=== PATIENT | female | born 1990 | race Caucasian/White ===

== ENCOUNTER 2018-05-03 21:25 | Emergency (ER) | payer BC, OTHER ==
[~2018-05-03] VITALS: Ht 162.6 cm; Wt 79.4 kg
[2018-05-03 22:01] LABS: BILIRUBIN,URINE NEGATIVE (NEGATIVE); CLARITY,URINE CLEAR; COLOR,URINE YELLOW; GLUCOSE, URINE (UA) NEGATIVE (NEGATIVE); KETONES,URINE NEGATIVE (NEGATIVE); LEUKOCYTE ESTERASE ,URINE 1+ (NEGATIVE); NITRITE,URINE NEGATIVE (NEGATIVE); PH,URINE 5 (5-9); PROTEIN,URINE NEGATIVE (NEGATIVE); UROBILINOGEN,URINE NORMAL (NORMAL)
[2018-05-03 22:03] LABS: BASOPHILS % (AUTO) 0 % (0-10); EOSINOPHILS # (AUTO) 0.3 10^3/uL (0.0-0.3); EOSINOPHILS % (AUTO) 2 % (0-10); HEMATOCRIT 36 % (35-52); HEMOGLOBIN 12.9 G/DL (11.5-16.0); LYMPHOCYTES # (AUTO) 2.1 X 10^3 (1.0-4.0); LYMPHOCYTES % (AUTO) 14 % (12-44); MEAN CORPUSCULAR HEMOGLOBIN 32 PG (25-34); MEAN CORPUSCULAR HGB CONC 36 G/DL (32-36); MEAN CORPUSCULAR VOLUME 88 FL (80-99); MEAN PLATELET VOLUME 10.2 FL (7.4-10.4); MONOCYTES % (AUTO) 7 % (0-12); NEUTROPHILS # (AUTO) 11.5 X 10^3 (1.8-7.8); NEUTROPHILS % (AUTO) 77 % (42-75); PLATELET COUNT 167 10^3/uL (130-400); RED BLOOD COUNT 4.07 10^6/uL (4.35-5.85); RED CELL DISTRIBUTION WIDTH 12.2 % (10.0-14.5); WHITE BLOOD COUNT 14.9 10^3/uL (4.3-11.0)
[2018-05-03 22:07] LABS: BACTERIA,URINE TRACE /HPF; RBC,URINE 50-100 /HPF; WBC,URINE RARE /HPF
[2018-05-03 22:20] LABS: BAND NEUTROPHILS 6 %; EOSINOPHILS % (MANUAL) 1 %; LYMPHOCYTES % (MANUAL) 10 %; MONOCYTES % (MANUAL) 5 %; NEUTROPHILS % (MANUAL) 78 %; RBC MORPH NORMAL
--- NOTE | 2018-05-03 23:31 | ED GU-Female ---
General Chief Complaint: -Female Stated Complaint: PASSING LARGE CLOTS/PAIN Nursing Triage Note: states that she is 8 weeks gravid. She knows she has a subcorionic bleed- was seen in ed 2 [address] Yo Rush for labs. at 2014- passed 2 clots approx pingpongball and golfball sized with bright red blood. states she was cramping last night. very tearful Nursing Sepsis Screen: No Definite Risk Source: patient Exam Limitations: no limitations History of Present Illness Date Seen by Provider: May 03, 2018 Time Seen by Provider: 21:54 Initial Comments This 27-year-old young lady presents to the ER at about 8 weeks gestational age with vaginal bleeding. She has been bleeding for about 2 weeks and reports that a prior ultrasound noted a subchorionic hemorrhage. Today she has been bleeding heavier than she has over the past 2 weeks and she is now passing clots. She reports cramping that is perhaps a little worse than it has been over the last 2 weeks. She had presented to the emergency room in the [place], [place] previously. She denies any fevers. She has an appointment with Dr. Lund on May 05. Allergies and Home Medications Allergies Coded Allergies: No Known Drug Allergies (Unverified , 05/03/18) Patient Home Medication List Home Medication List Reviewed: Yes Review of Systems Review of Systems Constitutional: no symptoms reported EENTM: no symptoms reported Respiratory: no symptoms reported Cardiovascular: no symptoms reported Gastrointestinal: no symptoms reported Genitourinary: see HPI : Yes Musculoskeletal: no symptoms reported Skin: no symptoms reported Psychiatric/Neurological: No Symptoms Reported Endocrine: No Symptoms Reported Hematologic/Lymphatic: No Symptoms Reported Past Nnyrqew-Uteqfu-Lcslun Hx Patient Social History Alcohol Use: Denies Use Recreational Drug Use: No Smoking Status: Never a Smoker 2nd Hand Smoke Exposure: No Recent Foreign Travel: No Contact w/Someone Who Travel: No Recent Infectious Disease Expo: No Recent Hopitalizations: No Physical Abuse: No Sexual Abuse: No Mistreated: No Fear: No Immunizations Up To Date PED Vaccines UTD: Yes Seasonal Allergies Seasonal Allergies: No Past Medical History Surgeries: Yes Adenoidectomy, Ear Surgery, Tonsillectomy Respiratory: No Cardiac: No Neurological: No : Yes Hx : 1 Hx Para: 1 Genitourinary: No Gastrointestinal: No Musculoskeletal: No Endocrine: No HEENT: No Cancer: No Psychosocial: No Integumentary: No Blood Disorders: No Physical Exam Vital Signs Vital Signs - First Documented 05/03/18 05/03/18 21:30 23:45 Temp 98.9 Pulse 68 Resp 16 B/P (MAP) 138/69 (92) Pulse Ox 99 O2 Delivery Room Air Capillary Refill : Less Than 3 Seconds Height, Weight, BMI Height: 5'4.00" Weight: 175lbs. oz. 79.927636vc; BMI Method:Stated General Appearance: WD/WN, no apparent distress HEENT: normal ENT inspection, pharynx normal Neck: normal inspection Cardiovascular: regular rate, rhythm, no edema, no murmur Respiratory: lungs clear, normal breath sounds, no respiratory distress, no accessory muscle use Gastrointestinal: soft, tenderness (mild over the suprapubic region) Extremities: normal inspection, no pedal edema Neurologic/Psychiatric: advertising operations coordinator II-XII nml as tested, no motor/sensory deficits, alert, normal mood/affect, oriented x 3 Skin: normal color, warm/dry Progress/Results/Core Measures Suspected Sepsis Recent Fever Within 48 Hours: No Infection Criteria Present: None New/Unexplained Altered Menta: No Sepsis Screen: No Definite Risk SIRS Temperature:98.9 Pulse: 68 Respiratory Rate: 16 Laboratory Tests 05/03/18 21:40: White Blood Count 14.9H Blood Pressure 138 /69 Mean: 92 Laboratory Tests 05/03/18 21:40: Platelet Count 167 Results/Orders Lab Results Laboratory Tests Test 05/03/18 21:35 05/03/18 21:40 Range/Units Urine Color YELLOW Urine Clarity CLEAR Urine pH 5 5-9 Urine Specific Cascade 1.010 L 1.016-1.022 Urine Protein NEGATIVE NEGATIVE Urine Glucose (UA) NEGATIVE NEGATIVE Urine Ketones NEGATIVE NEGATIVE Urine Nitrite NEGATIVE NEGATIVE Urine Bilirubin NEGATIVE NEGATIVE Urine Urobilinogen NORMAL NORMAL MG/DL Urine Leukocyte Esterase 1+ H NEGATIVE Urine RBC (Auto) 5+ H NEGATIVE Urine RBC 50-100 H /HPF Urine WBC RARE /HPF Urine Squamous Epithelial Cells 2-5 /HPF Urine Crystals NONE /LPF Urine Bacteria TRACE /HPF Urine Casts NONE /LPF Urine Mucus NEGATIVE /LPF Urine Culture Indicated NO White Blood Count 14.9 H 4.3-11.0 10^3/uL Red Blood Count 4.07 L 4.35-5.85 10^6/uL Hemoglobin 12.9 11.5-16.0 G/DL Hematocrit 36 35-52 % Mean Corpuscular Volume 88 80-99 FL Mean Corpuscular Hemoglobin 32 25-34 PG Mean Corpuscular Hemoglobin Concent 36 32-36 G/DL Red Cell Distribution Width 12.2 10.0-14.5 % Platelet Count 167 130-400 10^3/uL Mean Platelet Volume 10.2 7.4-10.4 FL Neutrophils (%) (Auto) 77 H 42-75 % Lymphocytes (%) (Auto) 14 12-44 % Monocytes (%) (Auto) 7 0-12 % Eosinophils (%) (Auto) 2 0-10 % Basophils (%) (Auto) 0 0-10 % Neutrophils # (Auto) 11.5 H 1.8-7.8 X 10^3 Lymphocytes # (Auto) 2.1 1.0-4.0 X 10^3 Monocytes # (Auto) 1.0 0.0-1.0 X 10^3 Eosinophils # (Auto) 0.3 0.0-0.3 10^3/uL Basophils # (Auto) 0.0 0.0-0.1 10^3/uL Neutrophils % (Manual) 78 % Lymphocytes % (Manual) 10 % Monocytes % (Manual) 5 % Eosinophils % (Manual) 1 % Band Neutrophils 6 % Blood Morphology Comment NORMAL Human Chorionic Gonadotropin, Quant 23531 H <5 MIU/ML My Orders Orders - ALEX BRO MD Cbc With Automated Diff (05/03/18 21:54) Ua Culture If Indicated (05/03/18 21:54) Abo Rh Type (05/03/18 21:54) Manual Differential (05/03/18 21:40) Hcg,Quantitative (05/03/18 22:37) Vital Signs/I&O 05/03/18 05/03/18 21:30 23:45 Temp 98.9 98.5 Pulse 68 86 Resp 16 14 B/P (MAP) 138/69 (92) 125/73 (90) Pulse Ox 99 99 O2 Delivery Room Air Capillary Refill : Less Than 3 Seconds Blood Pressure Mean: 92 Progress Note : Progress Note Labs were reviewed. Ultrasound was not immediately available. Bleeding seemed to improve some during her ER stay. Close follow-up with Dr. Lund was recommended. Patient had already received a RhoGAM injection on her prior encounter 2 weeks ago. The hCG Quant was reassuring. Departure Impression Primary Impression: Vaginal bleeding during Disposition: HOME, SELF-CARE Condition: Stable Departure-Patient Inst. Decision time for Depature: 23:31 Referrals: ISAAC LUND DO (PCP/Family) Primary Care Physician Patient Instructions: Threatened Miscarriage Add. Discharge Instructions: Return to the emergency room if you have worsening symptoms including escalating pain, vaginal hemorrhage, or secondary signs of anemia such as shortness of breath, lightheadedness, or weakness. Contact Dr. Lund's office in the morning for further instructions. Continue to observe strict vaginal rest meaning nothing vaginally including intercourse until cleared by Dr. Lund. All discharge instructions reviewed with patient and/or family. Voiced understanding. Copy Copies To 1: ISAAC LUND JOSHUA T MD May 03, 2018 23:31
[2018-05-03 23:45] VITALS: BP 125/73
== END 2018-05-03 23:45 | disposition home or self-care (01) ==
LOC: ER 21:27
DX: O20.9 Hemorrhage in early pregnancy, unspecified (principal); Z3A.08 8 weeks gestation of pregnancy; Z90.89 Acquired absence of other organs
CPT/HCPCS: 36415; 81000; 84702; 85007; 85025; 85027; 86900; 86901; 99282

== ENCOUNTER 2018-05-06 11:02 | Day surgery (SDC) | payer BC ==
[~2018-05-06] VITALS: Ht 162.6 cm; Wt 79.4 kg
[2018-05-06 11:15] VITALS: BP 125/72
[2018-05-06] MEDS ORDERED: LACTATED RINGERS 1,000 ML IV PRN (11:32)
[2018-05-06] MEDS ORDERED: MIDAZOLAM 2 MG/2 ML (VERSED) VIAL IV ONE (11:45)
[2018-05-06] MEDS ORDERED: LIDOCAINE PF 2% 5 ML (XYLOCAINE) VIAL ONE (11:58)
[2018-05-06] MEDS ORDERED: DEXAMETHASONE 10 MG/ML (DECADRON) 1 ML VIAL ONE (11:58)
[2018-05-06] MEDS ORDERED: proPOfol 200 MG/20 ML (DIPRIVAN) VIAL IV ONE (11:58)
[2018-05-06] MEDS ORDERED: ONDANSETRON 4 MG/2 ML (SDV) Z0FRAN ONE (11:58)
[2018-05-06] MEDS ORDERED: SEVOFLURANE (ULTANE) 15 ML INHAL SOLN ONE (11:58)
[2018-05-06] MEDS ORDERED: fentaNYL INJECTION 100 MCG/2 ML AMP ONE (11:59)
[2018-05-06] MEDS ORDERED: MIDAZOLAM 2 MG/2 ML (VERSED) VIAL ONE (11:59)
[2018-05-06] MEDS ORDERED: metroNIDAZOLE 500MG/100ML IVPB 100 ML IV ONE (12:00)
[2018-05-06] MEDS ORDERED: ceFAZolin INJECTION 1,000 MG in NS (IVPB) 50 ML IV ONE (12:00)
[2018-05-06] MEDS ORDERED: metroNIDAZOLE 500MG/100ML IVPB 100 ML ONE (12:19)
[2018-05-06] MEDS ORDERED: ceFAZolin 1,000 MG/10 ML (ANCEF) VIAL ONE (12:19)
[2018-05-06] MEDS ORDERED: NS (IVPB) 50 ML ONE (12:19)
--- NOTE | 2018-05-06 12:59 | Progress Note-Pre Operative ---
Pre-Operative Progress Note H&P Reviewed The H&P was reviewed, patient examined and no changes noted. Date Seen by Provider: May 06, 2018 Time Seen by Provider: 12:50 Date H&P Reviewed: May 06, 2018 Time H&P Reviewed: 12:30 Pre-Operative Diagnosis: MISSED ISAAC SMART DO May 06, 2018 12:59
[2018-05-06] MEDS ORDERED: KETOROLAC 30 MG/ML VIAL ONE (13:28)
[2018-05-06] MEDS ORDERED: D5 LR IV SOLUTION 1,000 ML IV SCH (13:32)
--- NOTE | 2018-05-06 13:43 | Operative Report ---
Operative Report Date of Procedure/Surgery May 06, 2018 Surgeon (s) ISAAC LUND DO Paper Roll Machine Operator (s): Alek Benites, MS III Post-Operative Diagnosis missed ab Procedure Performed suction dilation and curettage Description of Procedure Anesthesia Type: General Estimated blood loss (mL): 25 Specimen(s) collected/removed products of conception Findings of the Procedure moderate amounts of products of conception Allergies and Home Medications Allergies Coded Allergies: No Known Drug Allergies (Unverified , 05/03/18) ISAAC LUND DO May 06, 2018 13:43
[2018-05-06] MEDS ORDERED: KETOROLAC 30 MG/ML VIAL IVP PRN (13:45)
[2018-05-06] MEDS ORDERED: ONDANSETRON 4 MG/2 ML (SDV) Z0FRAN IVP PRN ×2 (13:45)
[2018-05-06] MEDS ORDERED: ACHD5005 PO (13:45)
[2018-05-06] MEDS ORDERED: HYDROcodone/APAP 5 MG/325 MG (LORTAB) TAB PO PRN (13:45)
[2018-05-06] MEDS ORDERED: MEPERIDINE (DEMEROL) INJ 50 MG/ML IVP ONE (13:45)
[2018-05-06] MEDS ORDERED: KETOROLAC 30 MG/ML VIAL IVP ONE (13:45)
[2018-05-06] MEDS ORDERED: IBUP-1773 PO (13:45)
[2018-05-06] MEDS ORDERED: HYDROmorphone 2 MG/ML VIAL (DILAUDID) IV ONE (13:45)
[2018-05-06] MEDS ORDERED: HYDROmorphone 2 MG/ML VIAL (DILAUDID) ONE (13:46)
--- NOTE | 2018-05-06 13:46 | Discharge Inst-Women's Service ---
Discharge Inst-Women's Serv Depart Medication/Instructions New, Converted or Re-Newed RX: RX on Chart Final Diagnosis incomplete /miscarriage Consults/Follow Up Additional Follow Up: Yes ([address] Ram) Activity Activity: Activity as Tolerated Driving Instructions: No Driving for 24 Hours NO SMOKING: NO SMOKING Nothing Inside Vagina: No Douching, No Dotsero, No Tampons Diet Discharge Diet: No Restrictions Symptoms to Report to : Swelling Increased, Bleeding Excessive, Pain Increased, Fever Over 101 Degrees F, Vaginal Bleeding Increase, Cramps in Feet or Legs, Vaginal Discharge Foul For Any Problems or Questions: Contact Your Physician Skin/Wound Care Bathing Instructions: ISAAC Newton DO May 06, 2018 13:46
[2018-05-06 14:35] VITALS: BP 106/67
--- NOTE | 2018-05-06 14:42 | Anesthesia-General Post-Op ---
General Patient Condition Mental Status/LOC: Same as Preop Cardiovascular: Satisfactory Nausea/Vomiting: Absent Respiratory: Satisfactory Pain: Controlled Complications: Absent Post Op Complications Complications None Follow Up Care/Instructions Patient Instructions None needed. Anesthesia/Patient Condition Patient Condition Patient is doing well, no complaints, stable vital signs, no apparent adverse anesthesia problems. No complications reported per nursing. AL GAITAN CRNA May 06, 2018 14:42
[2018-05-06 15:05] VITALS: BP 102/57
[2018-05-06] MEDS ORDERED: HYDROcodone/APAP 5 MG/325 MG (LORTAB) TAB ONE ×2 (15:20→15:23)
[2018-05-06 15:35] VITALS: BP 100/63
[2018-05-06 16:45] VITALS: BP 106/63
[2018-05-06 16:47] VITALS: BP 106/63
[2018-05-06] MEDS ORDERED: IBUPROFEN 600 MG (MOTRIN) TAB PO SCH (18:00)
== END 2018-05-06 16:45 | disposition home or self-care (01) ==
LOC: SDC 11:02
PROVIDERS: ATTEND Obstetrics & Gynecology
DX: O02.1 Missed abortion (principal)
CPT/HCPCS: 36415; 86850; 86870; 86900; 86901; 87081; 88305

== ENCOUNTER → 2018-09-18 | Outpatient (CLI) | payer SELFPAY ==
[~2018-09-18] MED LIST: ACHD5005 PO; IBUP-1773 PO
== END ==
LOC: LAB 12:01
PROVIDERS: ATTEND Obstetrics & Gynecology
DX: O09.299 Supervision of pregnancy with other poor reproductive or obstetric history, unspecified trimester (principal)
CPT/HCPCS: 36415; 84702

== ENCOUNTER → 2019-04-20 | Outpatient (CLI) | payer SELFPAY | LOC: LAB FS 15:28 | PROVIDERS: ATTEND Obstetrics & Gynecology | DX: O20.0 Threatened abortion (principal); Z3A.00 Weeks of gestation of pregnancy not specified | CPT/HCPCS: 36415; 84144; 84702 ==

== ENCOUNTER → 2019-04-22 | Outpatient (CLI) | payer SELFPAY | LOC: LAB FS 14:35 | PROVIDERS: ATTEND Obstetrics & Gynecology | DX: O20.0 Threatened abortion (principal); Z3A.00 Weeks of gestation of pregnancy not specified | CPT/HCPCS: 36415; 84702 ==

== ENCOUNTER → 2019-08-17 | Outpatient (CLI) | payer MEDICAID ==
--- NOTE | 2019-08-17 13:07 | Diagnostic Imaging Report ---
INDICATION: Spotting. TECHNIQUE: Multiple real-time grayscale images were obtained over the gravid uterus. COMPARISON: None FINDINGS: There is a single live fetus in a breech presentation. heart rate was recorded at 152 BPM. There is some slight irregularity in the heartbeat. Placenta is posterior and fundal. Amniotic fluid volume appears to be normal. No gross abnormalities are seen although a four-chamber heart view is suboptimal. In addition, spine is somewhat limited in evaluation. There does appear to be a three-vessel cord with normal insertion. brain is unremarkable. Kidneys were visualized and unremarkable. Biometrical measurements are as follows: Biparietal 4.95 cm, age 21 weeks 0 days. Head circumference 18.28 cm, age 20 weeks 5 days. Abdominal circumference 15.42 cm, age 20 weeks 5 days. Femur length 3.36 cm, age 20 weeks 4 days. Sonographic estimate age: 20 weeks 6 days. Sonographic estimated date of delivery: 12/29/19. Estimated Weight: 364 gm (+/- 53 gm). LMP percentile: 39%. heart rate: 152 beats per minute. number: 1 of 1. IMPRESSION: Single live IUP approximately 20 weeks 6 days gestational age with estimated date of confinement sonographically at 12/29/2019. No gross abnormality is seen although heart rate was somewhat irregular although rate seemed to be appropriate. Continued follow-up would be recommended. No other significant abnormality is seen. Dictated by: Dictated on workstation # [id number]
== END ==
LOC: RAD 09:44
PROVIDERS: ATTEND Obstetrics & Gynecology
DX: Z34.92 Encounter for supervision of normal pregnancy, unspecified, second trimester (principal); Z3A.18 18 weeks gestation of pregnancy
CPT/HCPCS: 76805

== ENCOUNTER → 2019-09-30 | Outpatient (CLI) | payer MEDICAID ==
--- NOTE | 2019-09-30 16:48 | Diagnostic Imaging Report ---
INDICATION: Further evaluation of anatomy not seen on prior ultrasound. TECHNIQUE: Multiple real-time grayscale images were obtained over the gravid uterus. COMPARISON: 08/17/2019. FINDINGS: Cervix is closed and measures 4.96 cm in size. heart rate is 135 bpm. Four-chamber heart is visualized and normal. Placenta is posterior in position. The spine is not well seen due to positioning. Amount of amniotic fluid appears visually appropriate. IMPRESSION: 1. Four-chamber heart is identified and normal. 2. spine is again not well imaged due to positioning. Dictated by: Dictated on workstation # [id number]
== END ==
LOC: RAD 13:18
PROVIDERS: ATTEND Nurse Practitioner Women's Health
DX: Z36.2 Encounter for other antenatal screening follow-up (principal)
CPT/HCPCS: 76816

== ENCOUNTER 2019-11-20 20:37 | Outpatient (CLI) | payer MEDICAID ==
[~2019-11-20] VITALS: Ht 162.6 cm; Wt 106.2 kg
--- NOTE | 2019-11-20 19:13 | NUR ---
Dr. Shannon called with report of pt. informed that pt , 34/2 presents with complaints of decreased movement. Informed that pt has been on the monitor since 2054 with a baseline of 140. Presents with multiple accelerations and no decelerations. No contractions noted. Pt. denies bleeding or LOF. Confirms movement upon arrival. informed that vitals are WNL's. states that if pt has a reactive NST, that she can be discharged.
--- NOTE | 2019-11-20 20:40 | NUR ---
LUIGI CHEATHAM presented to unit via ambulatory from ED, accompanied by s.o, with c/o DECREASED MOVEMENT. LUIGI CHEATHAM weighed, gowned, voided, and to bed. EFHM and TOCO applied, VS taken. LUIGI CHEATHAM oriented to bed controls, call light, TV, heat, and A/C controls. above and further assessments carried about per Valorie marsh.
[2019-11-20 21:03] LABS: BILIRUBIN,URINE NEGATIVE (NEGATIVE); CLARITY,URINE CLEAR; COLOR,URINE YELLOW; GLUCOSE, URINE (UA) NEGATIVE (NEGATIVE); KETONES,URINE NEGATIVE (NEGATIVE); LEUKOCYTE ESTERASE ,URINE NEGATIVE (NEGATIVE); NITRITE,URINE NEGATIVE (NEGATIVE); PROTEIN,URINE NEGATIVE (NEGATIVE)
[2019-11-20 21:24] LABS: RBC,URINE 0-2 /HPF
[2019-11-20 21:25] LABS: BACTERIA,URINE FEW /HPF; WBC,URINE 0-2 /HPF
[2019-11-20 21:34] VITALS: BP 121/58
--- NOTE | 2019-11-20 21:34 | NUR ---
Discharge instructions reviewed with pt. Pt. walked out to car with . No s/s of distress.
[2019-11-20 22:04] VITALS: BP 121/58
[2019-11-20 22:09] VITALS: BP 121/58
--- NOTE | 2019-11-22 11:02 | Physician Query-Final Dx ---
SHANI BERGERON 11/22/19 1102: Clinic Account Progress/Dx Physician Query: Please give diagnosis Please include # weeks gestation Date of Service November 20, 2019 at 20:37 YANDEL FERRELL MD 11/23/19 0748: Clinic Account Progress/Dx DIAGNOSIS: Diagnosis 37 weeks gestation. FALSE Labor SHANI BERGERON November 22, 2019 11:02 YANDEL FERRELL MD November 23, 2019 07:48
== END 2019-11-20 21:34 ==
LOC: WSo 20:37 → LDRP 20:37 → WSo 21:34
PROVIDERS: ATTEND Obstetrics & Gynecology
DX: O36.8190 Decreased fetal movements, unspecified trimester, not applicable or unspecified (principal); Z3A.00 Weeks of gestation of pregnancy not specified
CPT/HCPCS: 81000; 99212

== ENCOUNTER 2019-12-19 15:34 | Outpatient (CLI) | payer MEDICAID ==
[~2019-12-19] VITALS: Ht 165.1 cm; Wt 107.7 kg
--- NOTE | 2019-12-19 15:45 | NUR ---
LUIGI CHEATHAM presented to unit via from ED, accompanied by S/O, with c/o CONTRACTIONS. LUIGI CHEATHAM weighed, gowned, voided, and to bed. EFHM and TOCO applied, VS taken. LUIGI CHEATHAM oriented to bed controls, call light, TV, heat, and A/C controls.
[2019-12-19 16:05] VITALS: BP 115/74
[2019-12-19 16:43] VITALS: BP 118/84
[2019-12-19] MEDS ORDERED: PREN-142 PO (16:58)
[2019-12-19] MEDS ORDERED: [UNRECOGNIZED DRUG - CODE] IJ (16:59)
--- NOTE | 2019-12-19 17:11 | NUR ---
OUT OF WS VIA AMBULATION TO HOME SELF CARE WITH S/O, LABOR PRECAUTIONS IN HAND,
--- NOTE | 2019-12-20 08:08 | Physician Query-Final Dx ---
SHANI BERGERON 12/20/19 0808: Clinic Account Progress/Dx Physician Query: Please give diagnosis Please include # weeks gestation Date of Service Dec 19, 2019 at 15:34 GENE RODRIGUEZ DO 12/21/19 0742: Clinic Account Progress/Dx Physician Query: Please give diagnosis (Intrauterine at 38 weeks 2. Decreased Movement 3. Contractions) DIAGNOSIS: Diagnosis Intrauterine at 38 weeks 2. Decreased Movement 3. Contractions SHANI BERGERON Dec 20, 2019 08:08 GENE RODRIGUEZ DO Dec 21, 2019 07:42
[2019-12-27] MEDS ORDERED: ACET-93 PO (16:00)
[2019-12-27] MEDS ORDERED: IBUP-844 PO (16:00)
[2019-12-27] MEDS ORDERED: DCS100C PO (16:00)
[2019-12-27] MEDS ORDERED: FERR325T18 PO (16:00)
[2019-12-27] MEDS ORDERED: SIME80TA16 PO (16:00)
[2019-12-27] MEDS ORDERED: OXYC5TAB96 PO (16:00)
== END 2019-12-19 17:11 | disposition home or self-care (01) ==
LOC: LDRP 15:34 → WSo 15:34
PROVIDERS: ATTEND Obstetrics & Gynecology
DX: O36.8130 Decreased fetal movements, third trimester, not applicable or unspecified (principal); Z3A.38 38 weeks gestation of pregnancy
CPT/HCPCS: 99213

== ENCOUNTER 2019-12-23 10:05 | Outpatient (RCR) | payer MEDICAID ==
[~2019-12-23] VITALS: Ht 163 cm; Wt 106.8 kg
[~2019-12-23 10:05] MED LIST changes: +PREN-142 PO; +[UNRECOGNIZED DRUG - CODE] IJ
[2019-12-27] MEDS ORDERED: FERR325T18 PO (16:00)
[2019-12-27] MEDS ORDERED: OXYC5TAB96 PO (16:00)
[2019-12-27] MEDS ORDERED: ACET-93 PO (16:00)
[2019-12-27] MEDS ORDERED: SIME80TA16 PO (16:00)
[2019-12-27] MEDS ORDERED: DCS100C PO (16:00)
[2019-12-27] MEDS ORDERED: IBUP-844 PO (16:00)
== END 2019-12-23 10:36 | disposition home or self-care (01) ==
LOC: PREOP 10:05
PROVIDERS: ATTEND Obstetrics & Gynecology
DX: Z01.818 Encounter for other preprocedural examination (principal)

== ENCOUNTER → 2020-05-28 | Outpatient (CLI) | payer MEDICAID ==
[~2020-05-28] MED LIST changes: +ACET-93 PO; +DCS100C PO; +FERR325T18 PO; +IBUP-844 PO; +OXC5T PO; +SIME80TA16 PO
== END ==
LOC: LAB FS 14:46
PROVIDERS: ATTEND Family Medicine
DX: N92.5 Other specified irregular menstruation (principal)
CPT/HCPCS: 36415; 84702

== ENCOUNTER → 2020-08-08 | Outpatient (CLI) | payer MEDICAID ==
--- NOTE | 2020-08-08 15:02 | Diagnostic Imaging Report ---
PROCEDURE: MRI left upper extremity without contrast. TECHNIQUE: Multiplanar, multisequence non contrast-enhanced MRI of the left upper extremity was accomplished. INDICATION: Chronic left shoulder pain. COMPARISON: None. FINDINGS: No acute fracture or dislocation is seen in the left shoulder. Alignment appears normal. There is no joint effusion. The articular cartilage appears intact. The supraspinatus, infraspinatus, teres minor, and subscapularis tendons are intact. There is no high-grade partial-thickness or full-thickness tear. The musculature demonstrates no atrophy. The long head of the biceps tendon appears normal in course and signal. The glenoid labrum is suboptimally evaluated without intra-articular contrast, but there is no evidence of tear or para labral cyst. The acromion has a curved undersurface without hooking. The coracoclavicular and coracoacromial ligaments are intact. There is minimal thickening in the subacromial and subdeltoid bursa. The subcoracoid fat is noted in the inferior glenohumeral ligament does not appear thickened. Soft tissues about the left shoulder are otherwise unremarkable. IMPRESSION: 1. Minimal subacromial and subdeltoid bursitis. 2. No left rotator cuff tear. Dictated by: Dictated on workstation # [id number]
== END ==
LOC: RAD 13:48
PROVIDERS: ATTEND Family Medicine
DX: M75.52 Bursitis of left shoulder (principal)
CPT/HCPCS: 73221

== ENCOUNTER → 2020-11-05 | Outpatient (CLI) | payer MEDICAID | LOC: LAB FS 15:44 | PROVIDERS: ATTEND Family Medicine | DX: N92.5 Other specified irregular menstruation (principal) | CPT/HCPCS: 36415; 84702 ==

== ENCOUNTER → 2020-11-19 | Outpatient (CLI) | payer MEDICAID ==
[2020-11-19 16:47] LABS: HEMOGLOBIN 13.9 G/DL (11.5-16.0); WHITE BLOOD COUNT 9.5 10^3/uL (4.3-11.0)
[2020-11-19 16:48] LABS: MEAN PLATELET VOLUME 10.2 FL (7.4-10.4)
== END ==
LOC: LAB FS 15:39
PROVIDERS: ATTEND Family Medicine
DX: O26.851 Spotting complicating pregnancy, first trimester (principal); O09.91 Supervision of high risk pregnancy, unspecified, first trimester; Z3A.00 Weeks of gestation of pregnancy not specified
CPT/HCPCS: 36415; 84702; 85027; 86703; 86762; 86780; 86850; 86900; 86901; 87088; 87340

== ENCOUNTER → 2020-11-22 | Outpatient (CLI) | payer MEDICAID | LOC: LAB FS 13:53 | PROVIDERS: ATTEND Family Medicine | DX: O26.859 Spotting complicating pregnancy, unspecified trimester (principal); Z3A.00 Weeks of gestation of pregnancy not specified | CPT/HCPCS: 36415; 84702 ==

== ENCOUNTER → 2020-12-06 | Outpatient (CLI) | payer MEDICAID | LOC: LABNPT 14:51 | PROVIDERS: ATTEND Family Medicine | DX: R31.9 Hematuria, unspecified (principal) | CPT/HCPCS: 87088 ==

== ENCOUNTER → 2021-02-22 | Outpatient (CLI) | payer MEDICAID | LOC: LAB FS 15:39 | PROVIDERS: ATTEND Family Medicine | DX: Z34.91 Encounter for supervision of normal pregnancy, unspecified, first trimester (principal); Z3A.00 Weeks of gestation of pregnancy not specified | CPT/HCPCS: 36415; 82105; 82677; 84702; 86336 ==

== ENCOUNTER → 2021-02-28 | Outpatient (CLI) | payer MEDICAID ==
--- NOTE | 2021-02-28 15:39 | Diagnostic Imaging Report ---
INDICATION: survey. TECHNIQUE: Multiple real-time grayscale images were obtained over the gravid uterus. COMPARISON: None FINDINGS: There is a single live fetus in a transverse presentation, head to maternal left. heart rate was recorded at 149 bpm. Placenta is posterior and low-lying. Amniotic fluid volume is normal. kidneys, bladder and stomach are unremarkable. brain is unremarkable. There is a four-chamber heart. There is a three-vessel cord with normal insertion. facial anatomy as well as spine evaluation is somewhat limited due to position. Biometrical measurements are as follows: Biparietal 4.65 cm, age 20 weeks 1 days. Head circumference 16.87 cm, age 19 weeks 4 days. Abdominal circumference 15.07 cm, age 20 weeks 3 days. Femur length 3.37 cm, age 20 weeks 4 days. Sonographic estimate age: 20 weeks 2 days. Sonographic estimated date of delivery: 07/16/2021. Estimated Weight: 346 gm (+/- 51 gm). LMP percentile: 47%. heart rate: 149 beats per minute. number: 1 of 1. IMPRESSION: Single live IUP 20 weeks 2 days gestational age. Estimated date of confinement sonographically is 07/16/2021. Dictated by: Dictated on workstation # [id number]
== END ==
LOC: RAD FS 14:03
PROVIDERS: ATTEND Family Medicine
DX: Z34.92 Encounter for supervision of normal pregnancy, unspecified, second trimester (principal); Z3A.20 20 weeks gestation of pregnancy
CPT/HCPCS: 76805

== ENCOUNTER → 2021-04-04 | Outpatient (CLI) | payer MEDICAID ==
[~2021-04-04] MED LIST changes: -DCS100C PO; +DOCU-239 PO
--- NOTE | 2021-04-04 18:44 | Diagnostic Imaging Report ---
INDICATION: survey. TECHNIQUE: Multiple real-time grayscale images were obtained over the gravid uterus. COMPARISON: There is no prior study available for comparison. FINDINGS: There is a single live fetus in cephalic presentation. heart motion was noted and a rate of 146 BPM was recorded. There was no abnormality identified. Iliac fluid volume is within normal limits. The placenta is posterior and there is no previa. The cervix was identified and measures 3.9 cm in length. The growth parameters are fairly uniform. IMPRESSION: 1. There is a single live fetus approximately 24 weeks 2 days gestation +/- 1 week. The EDC is 07/16/2021. 2. There is no abnormality identified. 3. The growth parameters are fairly uniform. 4. These results will be discussed with our sonologist. Biometrical measurements are as follows: Biparietal cm, age weeks days. Head circumference cm, age weeks days. Abdominal circumference cm, age weeks days. Femur length cm, age weeks days. Sonographic estimate age: weeks days. Sonographic estimated date of delivery: . Estimated Weight: gm (+/- gm). LMP percentile: %. heart rate: beats per minute. number: of . Dictated on workstation # [id number]
== END ==
LOC: RAD FS 15:34
PROVIDERS: ATTEND Obstetrics & Gynecology
DX: O44.42 Low lying placenta NOS or without hemorrhage, second trimester (principal); Z3A.24 24 weeks gestation of pregnancy
CPT/HCPCS: 76816

== ENCOUNTER → 2021-04-23 | Outpatient (CLI) | payer MEDICAID ==
[2021-04-23 13:07] LABS: HEMOGLOBIN 12.2 g/dL (11.5-16.0); WHITE BLOOD COUNT 9.6 10^3/uL (4.3-11.0)
[2021-04-23 13:08] LABS: MEAN PLATELET VOLUME 10.6 fL (9.0-12.2)
== END ==
LOC: LAB FS 10:42
PROVIDERS: ATTEND Family Medicine
DX: Z34.91 Encounter for supervision of normal pregnancy, unspecified, first trimester (principal)
CPT/HCPCS: 36415; 82950; 85027; 86592; 86850

== ENCOUNTER 2021-06-24 17:51 | Outpatient (CLI) | payer MEDICAID ==
[~2021-06-24] VITALS: Ht 160 cm; Wt 114.2 kg
[2021-06-24 18:06] VITALS: BP 121/78
[2021-06-24 18:34] VITALS: BP 121/78
[2021-06-24 18:37] LABS: BILIRUBIN,URINE NEGATIVE (NEGATIVE); CLARITY,URINE CLEAR; COLOR,URINE YELLOW; GLUCOSE, URINE (UA) NEGATIVE (NEGATIVE); KETONES,URINE NEGATIVE (NEGATIVE); LEUKOCYTE ESTERASE ,URINE NEGATIVE (NEGATIVE); NITRITE,URINE NEGATIVE (NEGATIVE); PH,URINE 6.5 (5-9); PROTEIN,URINE NEGATIVE (NEGATIVE)
[2021-06-24 18:44] LABS: BACTERIA,URINE FEW /HPF; WBC,URINE RARE /HPF
[2021-06-24] MEDS ORDERED: ACETAMINOPHEN 500 MG TAB (TYLENOL) PO ONE (19:15)
[2021-06-24] MEDS ORDERED: CYCLOBENZAPRINE 10 MG (FLEXERIL) TAB PO SCH (19:15)
[2021-06-24] MEDS ORDERED: CYCLOBENZAPRINE 10 MG (FLEXERIL) TAB ONE (19:25)
[2021-06-24] MEDS ORDERED: ACETAMINOPHEN 500 MG TAB (TYLENOL) ONE (19:29)
--- NOTE | 2021-06-25 08:24 | Physician Query-Final Dx ---
RUBIO06/25/21 0824: Clinic Account Progress/Dx Physician Query: Please give diagnosis Please include # weeks gestation Date of Service Jun 24, 2021 at 17:51 MINNIE GARCÍA MD 06/25/21 1347: Clinic Account Progress/Dx Physician Query: Please give diagnosis DIAGNOSIS: Diagnosis: (1) Uterine contractions (2) contractions Diagnosis Uterine Contractions RUBIO,JulJun 25, 2021 08:24 MINNIE GARCÍA MD Jun 25, 2021 13:47
== END 2021-06-24 20:22 | disposition home or self-care (01) ==
LOC: LDRP 17:51 → WSo 17:51 → LDRP 18:23 → WSo 20:22
PROVIDERS: ATTEND Obstetrics & Gynecology
DX: O62.9 Abnormality of forces of labor, unspecified (principal); Z3A.00 Weeks of gestation of pregnancy not specified
CPT/HCPCS: 81000; 87088; G0463; 99213

== ENCOUNTER → 2021-07-02 | Outpatient (CLI) | payer MEDICAID ==
[~2021-07-02] MED LIST changes: +ASPI-999 PO; +ENOX40DI13 SQ; +SERT-413 PO
--- NOTE | 2021-07-02 15:39 | Diagnostic Imaging Report ---
INDICATION: High risk . position, MARINA and weight. TECHNIQUE: Multiple real-time grayscale images were obtained over the gravid uterus. COMPARISON: 04/04/2021 FINDINGS: Fetus is in breech presentation. The cervix is not well seen as it is obscured by shadowing from surrounding bowel gas and structures. No previa is noted. Placenta is posteriorly positioned. MARINA is upper limits of normal measuring 23 cm. Biometrical measurements are as follows: Biparietal 9.11 cm, age 37 weeks 0 days. Head circumference 33.34 cm, age 38 weeks 1 days. Abdominal circumference 34.43 cm, age 38 weeks 3 days. Femur length 7.42 cm, age 38 weeks 0 days. Sonographic estimate age: 38 weeks 0 days. Sonographic estimated date of delivery: 07/16/2021. Estimated Weight: 3381 gm (+/- 494 gm). LMP percentile: 64%. heart rate: 132 beats per minute. number: 1 of 1. IMPRESSION: 1. Estimated weight is in the 64th percentile for gestational age. 2. MARINA is upper normal at 23 cm. 3. Breech presentation. Dictated by: Dictated on workstation # [id number]
== END ==
LOC: RAD 12:00
PROVIDERS: ATTEND Obstetrics & Gynecology
DX: O09.893 Supervision of other high risk pregnancies, third trimester (principal); O32.1XX0 Maternal care for breech presentation, not applicable or unspecified; Z3A.38 38 weeks gestation of pregnancy
CPT/HCPCS: 76816

== ENCOUNTER 2021-07-04 05:32 | Outpatient (CLI) | payer MEDICAID ==
[~2021-07-04] VITALS: Ht 160 cm; Wt 113.6 kg
[~2021-07-04 05:32] MED LIST changes: -ASPI-999 PO; -ENOX40DI13 SQ; -SERT-413 PO
[2021-07-04] MEDS ORDERED: ENOX40DI13 SQ (13:52)
[2021-07-04] MEDS ORDERED: ASPI-999 PO (13:52)
[2021-07-04] MEDS ORDERED: SERT-413 PO (13:52)
== END 2021-07-04 14:00 | disposition home or self-care (01) ==
LOC: PREOP 05:32
PROVIDERS: ATTEND Obstetrics & Gynecology
DX: Z01.818 Encounter for other preprocedural examination (principal)

== ENCOUNTER 2021-07-09 06:12 | Inpatient (IN) | payer MEDICAID ==
[2021-07-09] VITALS (10 sets, daily range): BP systolic 101–126; BP diastolic 48–110
[~2021-07-09] VITALS: Ht 160 cm; Wt 114.4 kg
[~2021-07-09 06:12] MED LIST changes: +ASPI-999 PO; +ENOX40DI13 SQ; +SERT-413 PO
[2021-07-09] MEDS ORDERED: METOCLOPRAMIDE INJ 10 MG/2 ML (REGLAN) IV ONE (06:30)
[2021-07-09] MEDS ORDERED: CITRIC ACID/SOB CIT (BICITRA) 30 ML UDC PO ONE (06:30)
[2021-07-09] MEDS ORDERED: FAMOTIDINE 20MG/2ML IV (PEPCID) IV ONE (06:30)
[2021-07-09] MEDS ORDERED: LACTATED RINGERS 1,000 ML IV SCH (06:30)
[2021-07-09] MEDS: LACTATED RINGERS 1,000 ML IV SCH ×2 (07:00→07:32)
[2021-07-09 07:07] LABS: BASOPHILS % (AUTO) 0 % (0-10); EOSINOPHILS # (AUTO) 0.2 10^3/uL (0.0-0.3); EOSINOPHILS % (AUTO) 2 % (0-10); HEMATOCRIT 37 % (35-52); HEMOGLOBIN 13.4 g/dL (11.5-16.0); LYMPHOCYTES % (AUTO) 19 % (12-44); MEAN CORPUSCULAR HEMOGLOBIN 33 pg (25-34); MEAN CORPUSCULAR HGB CONC 36 g/dL (32-36); MEAN CORPUSCULAR VOLUME 90 fL (80-99); MEAN PLATELET VOLUME 11.5 fL (9.0-12.2); MONOCYTES # (AUTO) 0.7 10^3/uL (0.0-1.0); MONOCYTES % (AUTO) 6 % (0-12); NEUTROPHILS # (AUTO) 7.6 10^3/uL (1.8-7.8); NEUTROPHILS % (AUTO) 72 % (42-75); PLATELET COUNT 93 10^3/uL (130-400); WHITE BLOOD COUNT 10.6 10^3/uL (4.3-11.0)
[2021-07-09] MEDS ORDERED: fentaNYL INJ 100 MCG/2 ML AMP ONE (07:16)
[2021-07-09] MEDS ORDERED: OXYTOCIN PRE-MIX DRIP 1,000 ML IV ONE (07:16)
[2021-07-09] MEDS ORDERED: ONDANSETRON 4 MG/2 ML (SDV) Z0FRAN ONE (07:16)
--- NOTE | 2021-07-09 07:39 | History & Physical-OB ---
OB - Chief Complaint & HPI Date/Time Date of Admission: Date of Admission: Jul 09, 2021 at 06:12 Date seen by a Provider: Jul 09, 2021 Time Seen by a Provider: 07:00 Chief Complaint/History OB-Reason for Admission/Chief: Section (Repeat CS due to breech) Hx : 4 Hx Para: 1021 Expected Date of Delivery: Jul 16, 2021 Gestational Age in Weeks: 39 Gestational Age in Days: 0 Indication for : desires repeat , malpresentation Admission Nurse Assessment Rev: Yes History of Labs HIV - HBsAg- HIV - VDRL NR GBS - Rh + Allergies and Home Medications Allergies Coded Allergies: No Known Drug Allergies (Unverified , 05/03/18) Patient Home Medication List Home Medication List Reviewed: Yes Aspirin (Aspirin) 81 Mg Tab.chew, 81 MG PO DAILY, (Reported) Entered as Reported by: SANDI HENRIQUEZ on 07/04/211351 Last Action: Reviewed Enoxaparin Sodium (Lovenox) 40 Mg/0.4 Ml Syringe, 40 MG SQ DAILY, (Reported) Entered as Reported by: SANDI HENRIQUEZ on 07/04/211351 Last Action: Reviewed Vit No.124/Iron/FA ( Vitamin Tablet) 1 Each Tablet, 1 EACH PO DAILY, (Reported) Entered as Reported by: WESTLEY PATRICK on 12/19/19 2048 Last Action: Reviewed Sertraline HCl (Sertraline HCl) 50 Mg Tablet, 50 MG PO DAILY, (Reported) Entered as Reported by: SANDI HENRQIUEZ on 07/04/21 135 Last Action: Reviewed Discontinued Medications Acetaminophen (Acetaminophen) 500 Mg Tablet, 1,000 MG PO Q8HR Discontinued Reason: No Longer Taking Prescribed by: ISAAC LUND on 12/27/19 1600 Docusate Sodium (Dok) 100 Mg Capsule, 100 MG PO BID Discontinued Reason: No Longer Taking Prescribed by: ISAAC LUND on 12/27/19 1600 Ferrous Sulfate (Ferrous Sulfate) 325 Mg Tablet, 325 MG PO DAILY@0700 Discontinued Reason: No Longer Taking Prescribed by: ISAAC LUND on 12/27/19 1600 Simethicone (Simethicone) 80 Mg Tab.chew, 80 MG PO Q2HR PRN for gas Discontinued Reason: No Longer Taking Prescribed by: ISAAC LUND on 12/27/19 1600 OB - History Hx of Present Care: Yes Ultrasounds: Normal mid trimester US Medical Complications: Other (antiphospholipid antibody syndrome, on lovenox PPX. DC 24 h rs prior to spinal) Information Induced Hypertension: No Maternal Gestational Diabetes: No Hemorrhage: No Obstetrical History Hx : 4 Hx Para: 1 Hx # Term Pregnancies: 1 Hx # Pregnancies: 0 Number of Living Children: 1 Hx Termination: No Hx Total # of Abortions (Spona: 2 Hx Multiple Gestation: No Hx Ectopic : No Hx Stillbirth: No Hx Complication: No Hx Induced Hypertens: No Hx Maternal Gestational Diabet: No Hx Hemorrhage: No Delivery History Hx Dystocia: No Hx Forceps Assisted Delivery: No Hx Vacuum Extraction Assisted: No Hx Placenta Abnormality: No Hx Distress: No Hx Large For Gestational Age I: No Hx Small for Gestational Age I: No Hx Section: Yes Hx Vaginal Delivery Post C-Sec: No Hx Blood Disorders: No Patient Past Medical History antiphospholipid antibody syndrome causing miscarriage on Lovenox PPX antiphospholipid antibody syndrome on Lovenox PPX Social History/Family History Alcohol Use: Denies Use Recreational Drug Use: No Smoking Cessation: Never smoker 2nd Hand Smoke Exposure: No Immunizations Influenza Vaccine Up-to-Date: Yes; Up-to-Date First/Initial COVID19 Vaccine: 10/31 Second COVID19 Vaccination: 11/30 COVID19 Vaccine Labor Representative: Aeponaa Hepatitis A: Yes Hepatitis B: Yes Tetanus Booster (TDap): Less than 5yrs (05/02) Rubella: immune RPR/VDRL: Negative GBS Status: Negative HBsAG: Negative OB - Admission Exam Physical Exam Vitals: Vital Signs 07/09/21 06:52 Temp 35.6 Pulse 96 Resp 18 B/P (MAP) 126/68 (87) Pulse Ox 97 O2 Delivery Room Air HEENT: NCAT Heart: Rhythm Normal Lungs: Crackles Abdomen: Gravid Heart Rate: 130's Accelerations: Accelerations Present Decelerations: No Decelerations Short Term Variability: Present Batch Heat Treat Operator Variability: Average (6-25) Contractions on Admission: >10 Minutes Apart Labs Laboratory Tests Test 07/09/21 06:58 Range/Units White Blood Count 10.6 4.3-11.0 10^3/uL Red Blood Count 4.12 3.80-5.11 10^6/uL Hemoglobin 13.4 11.5-16.0 g/dL Hematocrit 37 35-52 % Mean Corpuscular Volume 90 80-99 fL Mean Corpuscular Hemoglobin 33 25-34 pg Mean Corpuscular Hemoglobin Concent 36 32-36 g/dL Red Cell Distribution Width 12.2 10.0-14.5 % Platelet Count 93 L 130-400 10^3/uL Mean Platelet Volume 11.5 9.0-12.2 fL Immature Granulocyte % (Auto) 1 % Neutrophils (%) (Auto) 72 42-75 % Lymphocytes (%) (Auto) 19 12-44 % Monocytes (%) (Auto) 6 0-12 % Eosinophils (%) (Auto) 2 0-10 % Basophils (%) (Auto) 0 0-10 % Neutrophils # (Auto) 7.6 1.8-7.8 10^3/uL Lymphocytes # (Auto) 2.0 1.0-4.0 10^3/uL Monocytes # (Auto) 0.7 0.0-1.0 10^3/uL Eosinophils # (Auto) 0.2 0.0-0.3 10^3/uL Basophils # (Auto) 0.0 0.0-0.1 10^3/uL Immature Granulocyte # (Auto) 0.1 0.0-0.1 10^3/uL OB - Assessment/Plan/Diagnosis Assessment Assessment: section (breech) Admission Dx section Admission Status: Inpatient Order (span 2 midnights) Reason for Inpatient Admission: section Plan Plan: Section Other Plan Repeat section Risks of bleeding, infection, injury to bowel, bladder and ureter. Prophylactic antibiotics and SCDs Resume Lovenox 12-24 hrs pp ISAAC LUND DO Jul 09, 2021 07:39
[2021-07-09] MEDS ORDERED: ceFAZolin 2 GM IV Premixed 50 ML IV ONE (08:00)
[2021-07-09] MEDS ORDERED: KETOROLAC 30 MG/ML VIAL ONE (08:11)
[2021-07-09] MEDS ORDERED: BUPIVACAINE 0.25% 30 ML (SENSORCAINE) VIAL ONE (08:19)
[2021-07-09] MEDS ORDERED: NALOXONE 0.4 MG/ML 1 ML (NARCAN) VIAL IV PRN ×3 (08:30→09:00)
[2021-07-09] MEDS ORDERED: TETANUS,DIPTH,PERTUSS P/F (BOOSTRIX) 0.5 ML VIAL IM SCH (08:30)
[2021-07-09] MEDS ORDERED: MEASLES,MUMPS,RUBELLA 1 EA INJ SC SCH (08:30)
[2021-07-09] MEDS ORDERED: morphine INJ 4 MG/ML 1 ML (VIAL/SYRINGE) IV PRN (08:30)
[2021-07-09] MEDS ORDERED: OXYTOCIN PRE-MIX DRIP 500 ML IV SCH (08:30)
--- NOTE | 2021-07-09 08:30 | Cesarean Section Operative ---
Procedure Procedure Note Pre-operative Diagnosis: Jayne Quintero is a 30 /Para 4 / 1,Gestational Age 39 weeks with history of previous section, breech presentation, antiphospholipid antibody syndrome Post-operative Diagnosis: same Procedure: [] low transverse section Physician: ISAAC LUND Estimated blood loss: 1000 mL Disposition: stable Findings: Viable female infant, Apgars 8/8, weight 7#1ounce, intact placenta, 3vc, normal appearing uterus, tubes, and ovaries. Indications:Jayne Quintero is a 30 /Para 4 / 1,Gestational Age 39 weeks with history of previous section, breech presentation, antiphospholipid antibody syndrome (anticoagulation prophylaxis with lovenox. Last dose 07/07) Procedure Details: The patient was seen in pre-op and the procedure was discussed with the patient in full, including the risks, benefits, and alternatives. All questions were answered. The patient was taken to the operating room and a time out was performed, verifying patient and procedure. After spinal anesthesia was placed by our anesthesia colleagues, the patient was placed in the dorsal supine with leftward tilt for uterine displacement.~ Her abdomen was then prepped and draped in the typical sterile fashion. A P fannenstiel skin incision was made using a scalpel and carried down through the underlying fascia. The fascia was incised in the midline and tented up using Adrien clamps. On both the inferior and superior fascia side the rectus muscle was dissected off bluntly and sharply using Lee scissors. The peritoneum was identified and entered bluntly in the midline. This was then stretched laterally using manual strength. After entering the abdominal cavity and confirming lack of intraperitoneal adhesions, a large Mitch retractor was placed and the lower uterine segment was visualized. A scalpel was utilized to make a low transverse uterine incision. Amniotomy was performed with an Allis clamp with return of clear fluid. The infant's right hip was presenting. I rotated the fetus to allow me to grasp the feet. The feet were grasped and brought to the level of the incision. The was delivered up to the level of the scapulae and then the infant was rotated. The left arm delivered spontaneously but the right was flex and brought across the chest to deliver through the incision. I then utilized the Thwwfbaj-orzfomv-[id number] maneuver to flex the head forward and deliver the head. The infant was delivered without difficulty. Mouth and nares were suctioned with bulb suctioned. There was terminal meconium. After the umbilical cord was clamped and cut, the infant was handed off to the pediatric staff. A sample of cord blood was then obtained. The placenta was delivered intact via uterine massage. The uterus was cleared of all clots and debris. The uterine incision was closed using 0 Vicryl in a running locked fashion. A second imbricated layer was placed using 0 Vicryl in a running fashion as well. The bilateral tubes and ovaries appeared normal. The abdominal gutters were cleared of all clots and debris. A final check of the uterine incision showed it to be hemostatic. The peritoneum was closed using 3-0 Vicryl in a running fashion. The fascia was closed with 0 Vicryl in a running fashion. The subcutaneous space was hemostatic, and irrigated. The subcutaneous space was closed with 0Plain in a running fashion. The skin was then closed using 4-0 Monocryl in a running subcuticular fashion. The skin edges were reapproximated together and were hemostatic. A dressing was applied. All sponge, lap and needle counts were correct at the end of the procedure per nursing. Vitals - Labs Vital Signs - I&O Vital Signs Date Time Temp Pulse Resp B/P (MAP) Pulse Ox O2 Delivery O2 Flow Rate FiO2 07/09/21 06:52 35.6 96 18 97 Room Air 07/09/21 06:52 35.9 100 18 126/68 (87) 98 Room Air Labs Laboratory Tests 07/09/21 06:58: White Blood Count 10.6, Red Blood Count 4.12, Hemoglobin 13.4, Hematocrit 37, Mean Corpuscular Volume 90, Mean Corpuscular Hemoglobin 33, Mean Corpuscular Hemoglobin Concent 36, Red Cell Distribution Width 12.2, Platelet Count 93L, Mean Platelet Volume 11.5, Immature Granulocyte % (Auto) 1, Neutrophils (%) (Auto) 72, Lymphocytes (%) (Auto) 19, Monocytes (%) (Auto) 6, Eosinophils (%) (Auto) 2, Basophils (%) (Auto) 0, Neutrophils # (Auto) 7.6, Lymphocytes # (Auto) 2.0, Monocytes # (Auto) 0.7, Eosinophils # (Auto) 0.2, Basophils # (Auto) 0.0, Immature Granulocyte # (Auto) 0.1 ISAAC LUND DO Jul 09, 2021 08:30
[2021-07-09] MEDS ORDERED: ONDANSETRON 4 MG/2 ML (SDV) Z0FRAN IV PRN (09:00)
[2021-07-09] MEDS ORDERED: morphine INJ 10 MG/ML 1ML (SYR OR VIAL) IVP ONE (09:00)
[2021-07-09] MEDS ORDERED: ONDANSETRON 4 MG/2 ML (SDV) Z0FRAN IVP PRN (09:00)
[2021-07-09] MEDS ORDERED: diphenhydrAMINE 50 MG/ML INJ (BENADRYL) IV PRN (09:00)
[2021-07-09] MEDS ORDERED: METOCLOPRAMIDE INJ 10 MG/2 ML (REGLAN) IV PRN (09:00)
[2021-07-09] MEDS: CATHETER FLUSH 10 ML SYR IV SCH ×2 (13:30→14:35)
[2021-07-09] MEDS: KETOROLAC 30 MG/ML VIAL IV SCH ×2 (14:35→20:48)
[2021-07-09] MEDS: ACETAMINOPHEN 500 MG TAB (TYLENOL) PO SCH ×2 (14:36→22:00)
[2021-07-09] MEDS: DOCUSATE SODIUM 100 MG (COLACE) CAP PO SCH ×2 (14:41→20:48)
[2021-07-10 00:55] VITALS: BP 114/59
[2021-07-10] MEDS ORDERED: MILK OF MAGNESIA 400 MG/5 ML 30 ML UDC PO PRN (05:00)
[2021-07-10 05:55] VITALS: BP 119/74
[2021-07-10 05:55] LABS: BASOPHILS % (AUTO) 0 % (0-10); EOSINOPHILS # (AUTO) 0.3 10^3/uL (0.0-0.3); EOSINOPHILS % (AUTO) 2 % (0-10); HEMATOCRIT 32 % (35-52); LYMPHOCYTES # (AUTO) 2.3 10^3/uL (1.0-4.0); LYMPHOCYTES % (AUTO) 21 % (12-44); MEAN CORPUSCULAR HEMOGLOBIN 32 pg (25-34); MEAN CORPUSCULAR HGB CONC 34 g/dL (32-36); MEAN CORPUSCULAR VOLUME 94 fL (80-99); MEAN PLATELET VOLUME 11.2 fL (9.0-12.2); MONOCYTES # (AUTO) 0.7 10^3/uL (0.0-1.0); MONOCYTES % (AUTO) 7 % (0-12); NEUTROPHILS # (AUTO) 7.5 10^3/uL (1.8-7.8); NEUTROPHILS % (AUTO) 69 % (42-75); PLATELET COUNT 88 10^3/uL (130-400)
[2021-07-10] MEDS: CATHETER FLUSH 10 ML SYR IV SCH ×3 (05:58→14:00)
[2021-07-10] MEDS: ACETAMINOPHEN 500 MG TAB (TYLENOL) PO SCH ×3 (05:58→22:06)
[2021-07-10] MEDS: KETOROLAC 30 MG/ML VIAL IV SCH ×2 (05:58→12:42)
[2021-07-10 09:01] VITALS: BP 124/78
[2021-07-10] MEDS: DOCUSATE SODIUM 100 MG (COLACE) CAP PO SCH ×2 (09:10→22:06)
[2021-07-10] MEDS: ENOXAPARIN 40 MG/0.4 ML (LOVENOX) SYR SC SCH (09:11)
--- NOTE | 2021-07-10 09:55 | Postpartum Progress Note ---
Note Note Day # 1 Subjective: Patient is without complaints. Ambulating, voiding. Tolerating a regular diet without nausea or vomiting. Normal lochia. Pain is well controlled with oral pain medications. Objective: Physical Exam: General - Alert and oriented, no apparent distress Abdomen - Soft, appropriately tender to palpation, non-distended, fundus firm at umbilicus; incision c/d/i Extremities - no edema, negative Hernando's bilaterally Assessment: Post- day # 1, status post RLTCS, breech presentation. Recovering well, hemodynamically stable Acute blood loss anemia Plan: Routine care. Encourage breast feeding. Encourage ambulation. Ferrous sulfate supplementation. Plan for discharge tomorrow Vitals - Labs Vital Signs - I&O Vital Signs Date Time Temp Pulse Resp B/P (MAP) Pulse Ox O2 Delivery O2 Flow Rate FiO2 07/10/21 09:01 36.5 65 16 124/78 (93) 99 Simple Mask 07/10/21 05:55 36.0 66 18 119/74 (89) 98 Room Air 07/10/21 00:55 36.3 82 18 114/59 (77) 99 Room Air 07/09/21 20:48 36.4 74 18 118/66 (83) 99 Room Air 07/09/21 15:36 36.9 83 18 109/58 (75) 97 Room Air 07/09/21 12:45 36.5 85 18 109/58 (75) 97 Room Air 07/09/21 10:10 36.0 68 18 116/66 (83) 100 Room Air I & O 07/10/21 07:00 Intake Total 3250 ml Output Total 1980 ml Balance 1270 ml Labs Laboratory Tests 07/10/21 05:34: White Blood Count 11.0, Red Blood Count 3.41L, Hemoglobin 11.0L, Hematocrit 32L, Mean Corpuscular Volume 94, Mean Corpuscular Hemoglobin 32, Mean Corpuscular Hemoglobin Concent 34, Red Cell Distribution Width 12.7, Platelet Count 88L, Mean Platelet Volume 11.2, Immature Granulocyte % (Auto) 1, Neutrophils (%) (Auto) 69, Lymphocytes (%) (Auto) 21, Monocytes (%) (Auto) 7, Eosinophils (%) (Auto) 2, Basophils (%) (Auto) 0, Neutrophils # (Auto) 7.5, Lymphocytes # (Auto) 2.3, Monocytes # (Auto) 0.7, Eosinophils # (Auto) 0.3, Basophils # (Auto) 0.0, Immature Granulocyte # (Auto) 0.1 Microbiology 07/09/21 MRSA Screen - Final, Complete MRSA not isolated FLORENTINO VELARDE APRN Jul 10, 2021 09:55
[2021-07-10 12:38] VITALS: BP 113/71
--- NOTE | 2021-07-10 13:35 | Anesthesia-Regional Post-Op ---
Regional Patient Condition Mental Status: Alert, Oriented x3 Circulation: Same as Pre-Op Headache: Absent Sensation: Full Recovery Motor Block: Absent Post Op Complications Complications None Follow Up Care/Instructions Patient Instructions None needed. Anesthesia/Patient Condition Patient is doing well, no complaints, stable vital signs, no apparent adverse anesthesia problems. MARTHA KING DO Jul 10, 2021 13:35
[2021-07-10 18:00] VITALS: BP 115/60
[2021-07-10] MEDS: IBUPROFEN 600 MG (MOTRIN) TAB PO SCH (18:00)
[2021-07-11 00:48] VITALS: BP 107/67
[2021-07-11] MEDS: IBUPROFEN 600 MG (MOTRIN) TAB PO SCH ×3 (00:48→12:22)
[2021-07-11 05:50] VITALS: BP 110/65
[2021-07-11] MEDS: ACETAMINOPHEN 500 MG TAB (TYLENOL) PO SCH (05:50)
[2021-07-11 06:45] LABS: BASOPHILS % (AUTO) 0 % (0-10); EOSINOPHILS # (AUTO) 0.2 10^3/uL (0.0-0.3); EOSINOPHILS % (AUTO) 2 % (0-10); HEMATOCRIT 32 % (35-52); LYMPHOCYTES # (AUTO) 2.2 10^3/uL (1.0-4.0); LYMPHOCYTES % (AUTO) 22 % (12-44); MEAN CORPUSCULAR HEMOGLOBIN 32 pg (25-34); MEAN CORPUSCULAR HGB CONC 34 g/dL (32-36); MEAN CORPUSCULAR VOLUME 94 fL (80-99); MEAN PLATELET VOLUME 10.8 fL (9.0-12.2); MONOCYTES # (AUTO) 0.6 10^3/uL (0.0-1.0); MONOCYTES % (AUTO) 6 % (0-12); NEUTROPHILS # (AUTO) 6.9 10^3/uL (1.8-7.8); NEUTROPHILS % (AUTO) 69 % (42-75); PLATELET COUNT 91 10^3/uL (130-400)
[2021-07-11] MEDS: CATHETER FLUSH 10 ML SYR IV SCH (07:00)
[2021-07-11 08:30] VITALS: BP 114/70
[2021-07-11] MEDS: DOCUSATE SODIUM 100 MG (COLACE) CAP PO SCH (08:39)
[2021-07-11] MEDS: ENOXAPARIN 40 MG/0.4 ML (LOVENOX) SYR SC SCH (08:41)
--- NOTE | 2021-07-11 08:45 | Postpartum Progress Note ---
Note Note Day # 2 Subjective: Patient is without complaints. Ambulating, voiding. Tolerating a regular diet without nausea or vomiting. Normal lochia. Pain is well controlled with oral pain medications. Objective: Physical Exam: General - Alert and oriented, no apparent distress Abdomen - Soft, appropriately tender to palpation, non-distended, fundus firm at umbilicus; incision c/d/i Extremities - no edema, negative Hernando's bilaterally Assessment: Post- day # 2, status post RLTCS, breech presentation. Recovering well, hemodynamically stable Acute blood loss anemia Plan: Routine care. Encourage breast feeding. Encourage ambulation. Ferrous sulfate supplementation. Plan for discharge today Vitals - Labs Vital Signs - I&O Vital Signs Date Time Temp Pulse Resp B/P (MAP) Pulse Ox O2 Delivery O2 Flow Rate FiO2 07/11/21 08:30 36.3 62 18 114/70 (85) 98 Room Air 07/11/21 05:50 36.4 61 18 110/65 (80) 99 Room Air 07/11/21 00:48 36.4 82 18 107/67 (80) 97 Room Air 07/10/21 18:00 36.9 81 16 115/60 (78) 97 Room Air 07/10/21 12:38 36.7 75 16 113/71 (85) 97 Room Air 07/10/21 09:01 36.5 65 16 124/78 (93) 99 Room Air I & O 07/11/21 07:00 Intake Total 1200 ml Output Total 1300 ml Balance -100 ml Labs Laboratory Tests 07/11/21 06:34: White Blood Count 10.0, Red Blood Count 3.42L, Hemoglobin 11.0L, Hematocrit 32L, Mean Corpuscular Volume 94, Mean Corpuscular Hemoglobin 32, Mean Corpuscular Hemoglobin Concent 34, Red Cell Distribution Width 12.6, Platelet Count 91L, Mean Platelet Volume 10.8, Immature Granulocyte % (Auto) 1, Neutrophils (%) (Auto) 69, Lymphocytes (%) (Auto) 22, Monocytes (%) (Auto) 6, Eosinophils (%) (Auto) 2, Basophils (%) (Auto) 0, Neutrophils # (Auto) 6.9, Lymphocytes # (Auto) 2.2, Monocytes # (Auto) 0.6, Eosinophils # (Auto) 0.2, Basophils # (Auto) 0.0, Immature Granulocyte # (Auto) 0.1, Percent Immature Platelet Fraction 4.6 Microbiology 07/09/21 MRSA Screen - Final, Complete MRSA not isolated FLORENTINO VELARDE EDUCATION REVIEWER Jul 11, 2021 08:45
[2021-07-11] MEDS ORDERED: OXC5T PO (08:53)
[2021-07-11] MEDS ORDERED: DOCU100C37 PO (08:53)
[2021-07-11] MEDS ORDERED: IBUP-844 PO (08:53)
--- NOTE | 2021-07-11 08:56 | Discharge Inst-Women's Service ---
Discharge Inst-Women's Serv Depart Medication/Instructions New, Converted or Re-Newed RX: Transmitted to Pharmacy Instructions Continue Lovenox for 30 days and then switch to 81mg Aspirin daily Problems Reviewed?: Yes Consults/Follow Up Additional Follow Up: Yes Orders/Referrals 1wk PO w/Florentino or Dr. Ram 6wk PP appt w/Dr. Skaggs Activity Activity: Activity as Tolerated Driving Instructions: No Driving for 1 Week NO SMOKING: NO SMOKING Nothing Inside Vagina: No Douching, No [place], No Tampons Diet Discharge Diet: No Restrictions Symptoms to Report to DrNikki: Bleeding Excessive, Pain Increased, Fever Over 101 Degrees F, Vaginal Bleeding Increase For Any Problems or Questions: Contact Your Physician Skin/Wound Care Infection Signs and Symptoms: Increased Redness, Increased Drainage, Increased Swelling, Temperature Above 101 F Operative Area Clean and Dry: Keep Incision Clean/Dry Stitches/Harvey/Dermabond: Dermabond Bathing Instructions: FLORENTINO Loaiza APRN Jul 11, 2021 08:56
== END 2021-07-11 14:10 | disposition home or self-care (01) | DRG 787 ==
LOC: LDRP 06:12
PROVIDERS: ADMIT Obstetrics & Gynecology; ATTEND Obstetrics & Gynecology
PROC: 10D00Z1 Extraction of Products of Conception, Low, Open Approach (ICD-10-PCS; principal; 2021-07-09 07:30)
DX: O34.211 Maternal care for low transverse scar from previous cesarean delivery (principal); O99.12 Other diseases of the blood and blood-forming organs and certain disorders involving the immune mechanism complicating childbirth; D68.61 Antiphospholipid syndrome; D62 Acute posthemorrhagic anemia; O90.81 Anemia of the puerperium; Z3A.39 39 weeks gestation of pregnancy; Z37.0 Single live birth; Z79.82 Long term (current) use of aspirin; Z79.899 Other long term (current) drug therapy; O32.1XX0 Maternal care for breech presentation, not applicable or unspecified
CPT/HCPCS: 36415; 83033; 85025; 86850; 86900; 86901; 87081